=== PATIENT | male | born 1955 | race Caucasian/White ===

== ENCOUNTER 2019-01-10 10:42 | Outpatient (CLI) | payer BC, OTHER ==
[2019-01-10 18:06] LABS: CREATININE,URINE 93.3 mg/dL; MICROALBUM/CREATININE RATIO,UR 25.7 ug/mg (<30.0); MICROALBUMIN,URINE 2.4 mg/dL (0-300.0)
[2019-01-10 18:18] LABS: ALBUMIN 4.7 g/dL (3.2-5.5); ALBUMIN/GLOBULIN RATIO 1.5 (1.0-2.2); ALKALINE PHOSPHATASE 86 IU/L (42-121); ALT ALANINE AMINOTRANSFERASE 27 IU/L (10-60); AST ASPARTATE AMINOTRANSFERASE 17 IU/L (10-42); BUN - BLOOD UREA NITROGEN 15 mg/dL (6-20); CALCIUM 9.6 mg/dL (8.5-10.3); CARBON DIOXIDE - CO2 26 mmol/L (21-32); CHLORIDE 104 mmol/L (101-111); CHOL/HDL RATIO 6.6 (<5.0); CHOLESTEROL 226 mg/dL; CREATININE 0.8 mg/dL (0.6-1.2); GFR - MDRD 97 (>89); GLUCOSE 106 mg/dL (70-100); HDL CHOLESTEROL 34 mg/dL; LDL CHOLESTEROL,CALCULATED 162 mg/dL; LDL/HDL RATIO 4.8 (<3.6); SODIUM 138 mmol/L (135-145); TOTAL PROTEIN 7.9 g/dL (6.7-8.2); VLDL CHOLESTEROL 30 mg/dL
[2019-01-10 18:45] LABS: HB2 TOTAL 17.7 g/dL; HEMOGLOBIN A1C 0.67 g/dL; HEMOGLOBIN A1C % 5.6 % (4.6-6.2)
== END 2019-01-10 10:43 | disposition home or self-care (01) ==
LOC: LAB.S 10:42
PROVIDERS: ATTEND Internal Medicine
DX: E78.5 Hyperlipidemia, unspecified (principal); E11.9 Type 2 diabetes mellitus without complications
CPT/HCPCS: 36415; 80053; 80061; 82043; 82570; 83036; 83721

== ENCOUNTER 2020-03-26 17:33 | Outpatient (CLI) | payer MEDICARE | END 2020-03-26 17:34 | disposition critical access hospital (66) | LOC: EMS 17:33 | PROVIDERS: ATTEND Emergency Medicine | DX: R10.9 Unspecified abdominal pain (principal) | CPT/HCPCS: A0425; A0427 ==

== ENCOUNTER 2020-03-26 18:00 | Emergency (ER) | payer MEDICARE ==
[2020-03-26] MEDS ORDERED: SODIUM CHLORIDE 0.9% 1,000 ML IV STA (18:19)
[2020-03-26] MEDS ORDERED: HYDROmorphone 1 MG/ML CARPUJECT IVP STA ×3 (18:19→20:50)
--- NOTE | 2020-03-26 18:21 | ED Physician Documentation ---
PD HPI ABD PAIN - Stated complaint Stated Complaint: ABD PX - Chief complaint Chief Complaint: Abd Pain - History obtained from History obtained from: Patient - History of Present Illness Timing - onset: How many weeks ago (3) Timing - duration: Weeks (3) Timing - details: Gradual onset Pain level max: 10 Pain level now: 10 Quality: Aching, Pain Location: Other (R sided abdomen) Radiation: Right flank. No: Chest, , Lower back, Left flank, Left shoulder, Right shoulder, Upper back Improved by: Other (oxycodone not helping today) Worsened by: Moving, Palpation Associated symptoms: Nausea, Constipation. No: Fever, Vomiting, Hematemesis, Diarrhea, Melena, Hematochezia, Dysuria, Hematuria, Chest pain, Dizzy Recently seen: Clinic (seen in surgery clinic today, by Dr. Miller, pain has steadily worsened. States has a "pulled muscle". States no workup has been done for his symptoms.) Review of Systems Ten Systems: 10 systems reviewed and negative Constitutional: denies: Fever, Chills GI: denies: Vomiting, Diarrhea Skin: denies: Rash Musculoskeletal: denies: Neck pain, Back pain Neurologic: denies: Headache PD PAST MEDICAL HISTORY - Past Medical History Past Medical History: Yes Cardiovascular: High cholesterol - Past Surgical History Past Surgical History: No - Present Medications Home Medications: Ambulatory Orders Medication Instructions Recorded Confirmed oxyCODONE/ACET 5/325 [Percocet 5 1 each PO Q6H PRN #25 tab 03/26/20 03/26/20 mg/325 mg] traMADol [Ultram] 1 tab PO DAILY 03/26/20 03/26/20 - Allergies Allergies/Adverse Reactions: Allergies Allergy/AdvReac Type Severity Reaction Status Date / Time No Known Drug Allergies Allergy Verified 03/26/20 18:13 - Social History Does the pt smoke?: Yes Smoking Status: Current every day smoker - Immunizations Immunizations are current?: Yes PD ED PE NORMAL - Vitals Vital signs reviewed: Yes - General General: Alert and oriented X 3, No acute distress - HEENT HEENT: Moist mucous membranes - Neck Neck: Supple, no meningeal sign - Cardiac Cardiac: RRR - Respiratory Respiratory: No respiratory distress, Clear bilaterally - Abdomen Abdomen: Other (Distended abdomen, very firm on the right side. Tender to palpation in the right upper and right lower quadrant. Umbilical hernia that is soft and reducible.) - Back Back: No CVA TTP, No spinal TTP - Derm Derm: Warm and dry - Neuro Neuro: Alert and oriented X 3 - Psych Psych: Normal mood, Normal affect Results - Vitals Vitals: Vital Signs - 24 hr 03/26/20 03/26/20 18:02 19:07 Temperature 37.2 C Heart Rate 104 H 100 Respiratory 22 37 H Rate Blood Pressure 142/90 H 168/102 H O2 Saturation 94 92 Oxygen O2 Source Nasal cannula - Labs Labs: Laboratory Tests 03/26/20 03/26/20 03/26/20 18:35 18:35 18:35 WBC 21.9 H RBC 4.44 L Hgb 13.7 L Hct 40.8 L MCV 91.9 MCH 30.9 MCHC 33.6 RDW 13.3 Plt Count 351 MPV 7.9 Neut # (Auto) Not Reportable Lymph # (Auto) Not Reportable [place] # (Auto) Not Reportable Eos # (Auto) Not Reportable Baso # (Auto) Not Reportable Absolute Nucleated RBC Not Reportable Total Counted 100 Band Neuts % (Manual) 7 Abnorm Lymph % (Manual) 0 Nucleated RBC % Not Reportable Neutrophils # (Manual) 19.3 H Lymphocytes # (Manual) 1.5 Monocytes # (Manual) 1.1 H Eosinophils # (Manual) 0.0 Basophils # (Manual) 0.0 Differential Comment MANUAL DIFFERENTIAL WBC Morphology 1+ TOXIC GRANULATION Platelet Estimate NORMAL (130-450,000) Platelet Morphology NORMAL APPEARANCE RBC Morph Micro Appear NORMAL APPEARANCE Sodium 133 L Potassium 3.9 Chloride 98 L Carbon Dioxide 18 L Anion Gap 17.0 H BUN 13 Creatinine 0.8 Estimated GFR (MDRD) 97 Glucose 186 H Lactic Acid 1.3 Calcium 9.0 Total Bilirubin 1.7 H AST 28 ALT 54 Alkaline Phosphatase 294 H Total Protein 8.1 Albumin 2.9 L Globulin 5.2 H Albumin/Globulin Ratio 0.6 L Lipase 22 Urine Color Urine Clarity Urine pH Ur Specific Igo Urine Protein Urine Glucose (UA) Urine Ketones Urine Occult Blood Urine Nitrite Urine Bilirubin Urine Urobilinogen Ur Leukocyte Esterase Urine RBC Urine WBC Ur Squamous Epith Cells Urine Bacteria Urine Mucus Ur Microscopic Review Urine Culture Comments 03/26/20 20:04 WBC RBC Hgb Hct MCV MCH MCHC RDW Plt Count MPV Neut # (Auto) Lymph # (Auto) [place] # (Auto) Eos # (Auto) Baso # (Auto) Absolute Nucleated RBC Total Counted Band Neuts % (Manual) Abnorm Lymph % (Manual) Nucleated RBC % Neutrophils # (Manual) Lymphocytes # (Manual) Monocytes # (Manual) Eosinophils # (Manual) Basophils # (Manual) Differential Comment WBC Morphology Platelet Estimate Platelet Morphology RBC Morph Micro Appear Sodium Potassium Chloride Carbon Dioxide Anion Gap BUN Creatinine Estimated GFR (MDRD) Glucose Lactic Acid Calcium Total Bilirubin AST ALT Alkaline Phosphatase Total Protein Albumin Globulin Albumin/Globulin Ratio Lipase Urine Color YELLOW Urine Clarity CLEAR Urine pH 5.5 Ur Specific Igo >=1.030 H Urine Protein 30 H Urine Glucose (UA) NEGATIVE Urine Ketones TRACE Urine Occult Blood NEGATIVE Urine Nitrite NEGATIVE Urine Bilirubin NEGATIVE Urine Urobilinogen 4 H Ur Leukocyte Esterase NEGATIVE Urine RBC 0-5 Urine WBC 0-3 Ur Squamous Epith Cells FEW Squamous Urine Bacteria None Seen Urine Mucus Moderate Strands Ur Microscopic Review INDICATED Urine Culture Comments NOT INDICATED - Rads (name of study) CT abd/pelvis Radiology: Prelim report reviewed, EMP read contemporaneously, See rad report PD MEDICAL DECISION MAKING - ED course Complexity details: reviewed results, re-evaluated patient, considered differential, d/w patient, d/w direct sales consultant ED course: 64-year-old male presents to the emergency department with 3 weeks of right- sided abdominal pain. Worsening today. Appears to have a perforated abdominal viscus on CT scan, most of the inflammation is located in the right lower quadrant behind the cecum, I presume that this is from a ruptured appendicitis. Patient was started on Zosyn. Dilaudid given for pain. Discussed the case with Dr. Miller, general surgery on-call, does not feel comfortable operating on this patient here due to his central abdominal obesity, states he is concerned about being able to close the abdomen. He also states that the main power to the hospital is going to be turned off tonight at 10 PM and we will be on generator power for approximately 6 to 7 hours. He does not feel comfortable going to the operating room with the power turned off tonight.He does not feel comfortable going to the operating room with the power turned off tonight. Call placed to [facility] in [place] at 1935. Discussed with radiology at 194. Similar read to my own read of the CT scan, large amount of fluid/gas mixture in the right lower quadrant of the abdomen tracking retroperitoneal and up upon the liver. Possible ruptured appendix versus terminal ileum. Discussed with Dr. Allred, surgery at [facility] in [place] who accepts in transfer. He recommends transfer directly to the emergency department. Discussed the case with Dr. Latia Martin who graciously accepts in transfer. COBRA forms completed. Patient transferred Departure - Departure Disposition: 02 Transfer Acute Care Hosp Clinical Impression: Acute perforated appendicitis, Free intraperitoneal air Condition: Stable
[2020-03-26] MEDS ORDERED: IOVERSOL 320 100 ML VIAL IVP ONE ×2 (18:33→19:34)
[2020-03-26 18:40] LABS: BASOPHILS % (AUTO) 0.3 %; EOSINOPHILS % (AUTO) 0.1 %; HGB - HEMOGLOBIN 13.7 g/dL (14.0-18.0); LYMPHOCYTES % (AUTO) 3.6 %; MEAN CORPUSCULAR HEMOGLOBIN 30.9 pg (27.0-31.0); MEAN CORPUSCULAR HGB CONC 33.6 g/dL (32.0-36.0); MEAN CORPUSCULAR VOLUME 91.9 fL (80.0-94.0); MEAN PLATELET VOLUME 7.9 fL (7.4-11.4); MONOCYTES % (AUTO) 3.9 %; NEUTROPHILS % (AUTO) 91.2 %; PLT - PLATELET COUNT 351 10^3/uL (130-450); RED BLOOD COUNT 4.44 10^6/uL (4.70-6.10); RED CELL DISTRIBUTION WIDTH 13.3 % (12.0-15.0); WHITE BLOOD COUNT 21.9 x10^3/uL (4.8-10.8)
[2020-03-26 18:42] LABS: ABNORMAL LYMPHS % (MANUAL) 0 %
[2020-03-26 18:52] LABS: ALBUMIN 2.9 g/dL (3.2-5.5); ALBUMIN/GLOBULIN RATIO 0.6 (1.0-2.2); BILIRUBIN,TOTAL 1.7 mg/dL (0.2-1.0); CREATININE 0.8 mg/dL (0.6-1.2); TOTAL PROTEIN 8.1 g/dL (6.7-8.2)
[2020-03-26 19:08] LABS: BAND NEUTROPHILS % (MANUAL) 7 %; LYMPHOCYTES # (MANUAL) 1.5 10^3/uL (1.5-3.5); LYMPHOCYTES % (MANUAL) 7 %; MONOCYTES # (MANUAL) 1.1 10^3/uL (0.0-1.0)
[2020-03-26 19:09] LABS: DIFFERENTIAL COMMENT MANUAL DIFFERENTIAL; PLATELET ESTIMATE, MANUAL NORMAL (130-450,000) (NORMAL); PLATELET MORPHOLOGY NORMAL APPEARANCE (NORMAL); RBC MORPHOLOGY (MULTIPLE) NORMAL APPEARANCE (NORMAL)
[2020-03-26] MEDS ORDERED: PIPERACILLIN/TAZOBACTAM 4.5 GM in SODIUM CHLORIDE 0.9% MINIBAG 100 ML IV STA (19:30)
--- NOTE | 2020-03-26 19:46 | CT Report ---
PROCEDURE: Abdomen/Pelvis W INDICATIONS: R sided abd pain CONTRAST: IV CONTRAST: Optiray 320 ml: 100 PO CONTRAST: *NO PO CONTRAST TECHNIQUE: After the administration of IV contrast, 5 mm thick sections acquired from the diaphragms to the symp hysis. 5 mm thick coronal and sagittal reformats were acquired. For radiation dose reduction, the f ollowing was used: automated exposure control, adjustment of mA and/or kV according to patient size. COMPARISON: None. FINDINGS: Image quality: Excellent. ABDOMEN: Lung bases: Moderate left and mild right bibasilar atelectasis versus pneumonia. Moderate calcificati on of the coronary vasculature. Heart size is normal. Solid organs: Liver and spleen are normal in size and enhancement. Gallbladder is within normal moyer its Biliary system is non dilated. Pancreas enhances normally. No adrenal nodules. Kidneys demons trate normal size and enhancement, without hydronephrosis. Peritoneum and bowel: Moderate distention of the descending colon and proximal transverse colon. The re is a contraction versus apple core lesion within the mid/distal aspect of the transverse colon (se josiah 4 image 43). Bowel loops demonstrate otherwise normal wall thickness and caliber. There is a flu id and gas collection within the right paracolic gutter, measuring roughly 11 cm. There is a retroper itoneal gas and fluid collection extending superiorly within the right paracolic gutter and extending into the perihepatic location. Appendix not seen. No evidence of appendicitis. Nodes and vessels: No retroperitoneal or mesenteric adenopathy by size criteria. Aorta and inferior vena cava are normal in size. Miscellaneous: No ventral hernias. PELVIS: Genitourinary: Bladder wall thickness is normal. Miscellaneous: No inguinal hernias or adenopathy. Bones: No suspicious bony lesions. No vertebral body compression fractures. IMPRESSION: 1. Gas and fluid collection within the right paracolic gutter adjacent to the cecum. Findings may rep resent sequelae of ruptured appendicitis versus ruptured colon. Findings were discussed with Dr. Ramos on on 03/26/2020 at 1940 hours. 2. There is a contraction versus constricting neoplasm within the mid/distal transverse colon. Furthe r assessment with endoscopy is recommended. 3. Bibasilar atelectasis versus pneumonia. Reviewed by: Shannan Avila MD on 03/26/2020 7:45 PM PST Approved by: Shannan Avila MD on 03/26/2020 7:45 PM [facility] Station ID: [id number]
[2020-03-26 20:20] LABS: GLUCOSE, URINE (UA) NEGATIVE (NEGATIVE); KETONES,URINE (UA) TRACE mg/dL (NEGATIVE); LEUKOCYTE ESTERASE, URINE NEGATIVE (NEGATIVE); NITRITE,URINE NEGATIVE (NEGATIVE); OCCULT BLOOD,URINE NEGATIVE (NEGATIVE); PH,URINE 5.5 PH (5.0-7.5); PROTEIN,URINE 30 mg/dL (NEGATIVE); UROBILINOGEN,URINE 4 E.U./dL (NORMAL)
[2020-03-26 20:25] LABS: BILIRUBIN,URINE NEGATIVE (NEGATIVE); CLARITY,URINE CLEAR (CLEAR); ICTOTEST,URINE NEGATIVE
[2020-03-26 20:30] LABS: BACTERIA,URINE None Seen /HPF (None Seen); MUCUS,URINE Moderate Strands; RBC,URINE 0-5 /HPF (0-5); SQUAMOUS EPITHELIAL CELL,UR FEW Squamous (<= Few)
[2020-03-26 20:56] LABS: C. PNEUMONIAE- RESP PCR PANEL NOT DETECTED
[2020-03-26 21:07] VITALS: BP 111/82
== END 2020-03-26 21:52 | disposition short-term general hospital (02) ==
LOC: EDUNIT# → ED 18:00
DX: K35.32 Acute appendicitis with perforation, localized peritonitis, and gangrene, without abscess (principal); K66.8 Other specified disorders of peritoneum; F17.200 Nicotine dependence, unspecified, uncomplicated; Z20.822 Contact with and (suspected) exposure to COVID-19
CPT/HCPCS: 36415; 74177; 80053; 81001; 83605; 83690; 85025; 87631; 96361; 96365; 96375; 96376; 99285; J1170; Q9967; 0202U; 81003; 87086

== ENCOUNTER 2020-03-26 21:55 | Outpatient (CLI) | payer MEDICARE | END 2020-03-26 21:56 | disposition short-term general hospital (02) | LOC: EMS 21:55 | DX: K63.1 Perforation of intestine (nontraumatic) (principal) | CPT/HCPCS: A0425; A0426 ==

== ENCOUNTER 2021-01-05 18:53 | Outpatient (CLI) | payer MEDICARE | END 2021-01-05 18:54 | disposition short-term general hospital (02) | LOC: EMS 18:53 | DX: R10.9 Unspecified abdominal pain (principal); R61 Generalized hyperhidrosis; R11.10 Vomiting, unspecified; R55 Syncope and collapse; I10 Essential (primary) hypertension; R82.998 Other abnormal findings in urine | CPT/HCPCS: A0425; A0427 ==

== ENCOUNTER 2021-01-15 14:57 | Outpatient (CLI) | payer MEDICARE | END 2021-01-15 14:58 | disposition short-term general hospital (02) | LOC: EMS 14:57 | DX: R10.9 Unspecified abdominal pain (principal) | CPT/HCPCS: A0425; A0427 ==